=== PATIENT | male | born 2000 | race African-American/Black ===

== ENCOUNTER 2020-04-25 08:19 | Emergency (ER) | payer OTHER ==
[~2020-04-25] VITALS: Ht 180.3 cm; Wt 106.6 kg
[2020-04-25 08:46] VITALS: BP 126/84
[2020-04-25 09:20] LABS: URINE BILIRUBIN NEGATIVE (Negative); URINE BLOOD NEGATIVE (Negative); URINE CLARITY CLEAR; URINE COLOR YELLOW; URINE GLUCOSE-RANDOM* NEGATIVE (Negative); URINE KETONES NEGATIVE (Negative); URINE LEUKOCYTES-REFLEX NEGATIVE (Negative); URINE NITRITE-REFLEX NEGATIVE (Negative); URINE PROTEIN (DIPSTICK) NEGATIVE (Negative); URINE UROBILINOGEN 0.2 E.U./dl (0.2-1.0)
[2020-04-25] MEDS ORDERED: VALACYCLOVIR1000 MG PO (09:30)
[2020-04-25 09:44] LABS: SSA (PROTEIN CONFIRMATORY) NEGATIVE (Negative)
[2020-04-26 20:49] LABS: HSV PCR SOURCE PENIS
[2020-04-27 23:06] LABS: HSV 1 DNA Negative (Negative); HSV 2 DNA Positive (Negative)
== END 2020-04-25 09:29 | disposition home or self-care (01) ==
LOC: ER 08:19
PROVIDERS: Emergency Medicine
DX: Z20.2 Contact with and (suspected) exposure to infections with a predominantly sexual mode of transmission (principal); Z20.828 Contact with and (suspected) exposure to other viral communicable diseases

== ENCOUNTER 2020-05-28 16:44 | Emergency (ER) | payer OTHER ==
[~2020-05-28] VITALS: Ht 177.8 cm; Wt 108.9 kg
[~2020-05-28 16:44] MED LIST: VALACYCLOVIR1000 MG PO
[2020-05-28 16:48] VITALS: BP 127/79
[2020-05-28] MEDS ORDERED: NAPROSYN500 M1 PO ×2 (18:11→18:13)
== END 2020-05-28 17:35 | disposition home or self-care (01) ==
LOC: ER 16:44
DX: M54.2 Cervicalgia (principal); M54.5 Low back pain; M25.521 Pain in right elbow; V49.9XXA Car occupant (driver) (passenger) injured in unspecified traffic accident, initial encounter; Y93.89 Activity, other specified; Y92.89 Other specified places as the place of occurrence of the external cause; Y99.8 Other external cause status

== ENCOUNTER 2020-06-01 08:08 | Emergency (ER) | payer OTHER ==
[~2020-06-01] VITALS: Ht 177.8 cm; Wt 108.9 kg
[~2020-06-01 08:08] MED LIST changes: +NAPROSYN500 M1 PO
[2020-06-01 08:09] VITALS: BP 124/82
[2020-06-01] MEDS ORDERED: CYCLOBENZAPRINE5 MG PO ×3 (09:25→09:33)
[2020-06-01] MEDS ORDERED: APAP W/CODEINE1 TA2 PO ×3 (09:26→09:33)
== END 2020-06-01 09:28 | disposition home or self-care (01) ==
LOC: ER 08:08
DX: M54.5 Low back pain (principal); M54.2 Cervicalgia; M25.561 Pain in right knee; M25.522 Pain in left elbow; M25.521 Pain in right elbow; V89.2XXA Person injured in unspecified motor-vehicle accident, traffic, initial encounter; Y93.89 Activity, other specified; Y92.89 Other specified places as the place of occurrence of the external cause; Y99.8 Other external cause status

== ENCOUNTER 2020-08-13 17:07 | Emergency (ER) | payer OTHER ==
[~2020-08-13] VITALS: Ht 177.8 cm; Wt 108.9 kg
[~2020-08-13 17:07] MED LIST changes: +APAP W/CODEINE1 TA2 PO; +CYCLOBENZAPRINE5 MG PO
[2020-08-13 19:10] VITALS: BP 136/71
== END 2020-08-13 19:10 | disposition home or self-care (01) ==
LOC: ER 17:07
DX: B34.9 Viral infection, unspecified (principal); J06.9 Acute upper respiratory infection, unspecified; J02.9 Acute pharyngitis, unspecified; Z20.828 Contact with and (suspected) exposure to other viral communicable diseases

== ENCOUNTER 2020-12-24 08:03 | Emergency (ER) | payer OTHER ==
[~2020-12-24] VITALS: Ht 180.3 cm; Wt 108.9 kg
[2020-12-24] MEDS ORDERED: ZOFRAN ODT4 MG PO (09:01)
[2020-12-24] MEDS ORDERED: PROTONIX40 MG PO (09:01)
[2020-12-24 09:13] VITALS: BP 114/76
== END 2020-12-24 09:14 | disposition home or self-care (01) ==
LOC: ER 08:03
DX: K21.9 Gastro-esophageal reflux disease without esophagitis (principal)

== ENCOUNTER 2021-01-07 07:46 | Emergency (ER) | payer OTHER ==
[~2021-01-07] VITALS: Ht 177.8 cm; Wt 108.9 kg
[~2021-01-07 07:46] MED LIST changes: +PROTONIX40 MG PO; +ZOFRAN ODT4 MG PO
[2021-01-07] MEDS ORDERED: NOHOMEMEDICATIONS (07:55)
[2021-01-07 08:28] LABS: ABSOLUTE NEUTROPHILS 8.4 thou/uL (1.4-8.2); BASOPHILS 0.9 % (0.0-2.0); EOSINOPHILS 0.3 % (0.0-3.0); HEMATOCRIT 48.1 % (42.0-52.0); HEMOGLOBIN 16.2 gm/dL (14.0-18.0); LYMPHOCYTES 17.5 % (24.0-44.0); MCH 29.6 pg (26.0-34.0); MCHC 33.7 g/dL (28.0-37.0); MCV 87.9 fL (80.0-100.0); MONOCYTES 6.4 % (1.0-8.0); PLATELET COUNT 273 thou/uL (150-400); POLYS 74.9 % (36.0-66.0); RBC 5.48 mil/uL (4.50-6.00); RDW 13.9 % (10.5-14.5); WBC 11.2 thou/uL (4.0-11.0)
[2021-01-07 08:39] LABS: ANION GAP 10 mmol/L (7-16); BUN 11 mg/dL (7-18); CALCIUM 9.2 mg/dL (8.5-10.1); CHLORIDE 105 mmol/L (98-107); CO2 27 mmol/L (21-32); CREATININE 0.9 mg/dL (0.7-1.3); GLUCOSE 121 mg/dL (74-106); POTASSIUM 3.9 mmol/L (3.5-5.1); SODIUM 142 mmol/L (136-145)
[2021-01-07 08:45] LABS: ALBUMIN 3.9 g/dL (3.4-5.0); DIRECT BILIRUBIN < 0.1 mg/dL (<0.1-0.2); LIPASE 55 U/L (73-393); SGOT 22 U/L (15-37); SGPT 48 U/L (30-65); TOTAL BILIRUBIN 0.5 mg/dL (0.2-1.0); TOTAL PROTEIN 8.3 g/dL (6.4-8.2)
[2021-01-07] MEDS ORDERED: ZOFRAN ODT4 MG PO (09:06)
[2021-01-07 09:13] VITALS: BP 117/75
== END 2021-01-07 09:13 | disposition home or self-care (01) ==
LOC: ER 07:46
PROVIDERS: Emergency Medicine
DX: K29.70 Gastritis, unspecified, without bleeding (principal); R11.2 Nausea with vomiting, unspecified

== ENCOUNTER 2021-08-14 07:20 | Emergency (ER) | payer BC ==
[~2021-08-14] VITALS: Ht 177.8 cm; Wt 108.9 kg
[~2021-08-14 07:20] MED LIST changes: +NOHOMEMEDICATIONS
[2021-08-14 07:45] VITALS: BP 130/87
[2021-08-14] MEDS ORDERED: FLAGYL375 MG PO (07:55)
[2021-08-14] MEDS ORDERED: DOXYCYCLINE 10100 MG PO (07:55)
== END 2021-08-14 08:25 | disposition home or self-care (01) ==
LOC: ER 07:20
PROVIDERS: Emergency Medicine
DX: L02.223 Furuncle of chest wall (principal); F12.90 Cannabis use, unspecified, uncomplicated